=== PATIENT | female | born 1980 | race Two or more races ===

== ENCOUNTER 2023-08-01 02:38 | Emergency (ER) | payer MEDICAID, OTHER ==
[~2023-08-01] VITALS: Ht 157.5 cm; Wt 90.0 kg
[2023-08-01 07:36] VITALS: BP 107/74; PULSE 96; RESP 17; TEMP 97.7; O2SAT 99
== END 2023-08-01 07:39 | disposition home or self-care (01) ==
LOC: EDBD 02:38 → ER 02:38
DX: T71.9XXA Asphyxiation due to unspecified cause, initial encounter (principal); Y92.89 Other specified places as the place of occurrence of the external cause
CPT/HCPCS: 70490